=== PATIENT | female | born 1965 | race African-American/Black ===

== ENCOUNTER 2018-01-06 22:26 | Inpatient (IN) | payer SELFPAY ==
[~2018-01-06 22:26] MED LIST: ISOVUE-370 76%-LOCM 1 ML ONE
[2018-01-06] MEDS ORDERED: Nitroglycerin 2% Ointment 1 INCH/1 GM Packet ONE (22:55)
[2018-01-06] MEDS ORDERED: niCARdipine 20MG In NaCl 20 MG/200 ML BAG ONE (22:55)
[2018-01-06 22:56] LABS: #Basophils 0.1 thou/uL (0.0-0.2); #Eosinphils 0.1 thou/uL (0.0-0.7); #Lymphocytes 1.4 thou/uL (1.20-3.40); #Monocytes 0.4 thou/uL (0.11-0.59); #Neutrophils 2.6 thou/uL (1.40-6.50); %Basophils 1.1 % (0.0-1.0); %Eosinophils 1.7 % (0.0-10.0); %Lymphocytes 31.2 % (21.0-51.0); %Monocytes 8.3 % (0.0-10.0); %Neutrophils 57.6 % (42.0-75.0); Mean Corpuscular HGB CONC 33.2 g/dL (32.0-36.0); Mean Corpuscular Hemoglobin 29.1 pg (27.0-31.0); Mean Corpuscular Volume 87.6 fl (81.0-99.0); Mean Platelet Volume 7.6 fL (7.4-10.4); Platelet Count 255 thou/uL (130-400); RBC Distribution Width 11.5 % (11.5-14.5); Red Blood Cell (RBC) Count 4.46 mill/uL (4.20-5.40); White Blood Cell (WBC) Count 4.6 thou/uL (4.8-10.8)
[2018-01-06 23:01] LABS: INR-International Normal Ratio 1.1; PTT 27.5 SEC (22.9-36.1)
--- NOTE | 2018-01-06 23:03 | RAD ---
PORTABLE CHEST: History: Chest pain FINDINGS: Lung glaser are clear. Heart and mediastinum unremarkable. IMPRESSION: No acute process. POS: [facility]
[2018-01-06 23:17] LABS: ALT (SGPT) 9 U/L (8-55); AST (SGOT) 18 U/L (5-34); Albumin 3.9 g/dL (3.5-5.0); Alkaline Phosphatase 90 U/L (40-150); Anion Gap 9 mmol/L (10-20); BUN (Urea Nitrogen) 11 mg/dL (9.8-20.1); Bilirubin, Total 0.4 mg/dL (0.2-1.2); CK (CPK) 170 U/L (29-168); Calc. Creatinine Clearance 0 mL/min (70-130); Calcium 9.6 mg/dL (7.8-10.44); Carbon Dioxide 30 mmol/L (22-29); Chloride 103 mmol/L (98-107); Estimated GFR-MDRD 75; Globulin 4.9 g/dL (2.4-3.5); Glucose 102 mg/dL (70-105); Lipase 27 U/L (8-78); Potassium 3.4 mmol/L (3.5-5.1); Protein, Total 8.8 g/dL (6.0-8.3); Sodium 139 mmol/L (136-145)
[2018-01-06 23:21] LABS: CKMB 2.3 ng/mL (0-6.6); Troponin I 0.029 ng/mL (< 0.028)
--- NOTE | 2018-01-06 23:29 | CT ---
CT AORTOGRAM CHEST AND ABDOMEN WITH CONTRAST: Technique: Multiple axial tomograms were obtained through the chest and abdomen in the arterial phase per aortic protocol. Multiplanar reconstruction and 3D post processing. History: Hypertension, chest pain, shortness of breath. Rule out aortic aneurysm or dissection. FINDINGS: There is no evidence of aneurysmal dilatation. No evidence of thoracic or abdominal aortic dissection . Aortic branches are unremarkable. There is no significant atherosclerotic change seen in the abdomi nal or thoracic aorta. Lung bases appear clear. Liver, spleen, and pancreas are unremarkable. Adrenal glands and kidneys are unremarkable. There are bilateral renal cysts. Bowel loops unremarkable. IMPRESSION: No evidence of aortic aneurysm or dissection. POS: [facility]
[2018-01-06] MEDS ORDERED: Clopidogrel Bisulfate 75 MG TAB ONE ×2 (23:51)
[2018-01-07 00:32] LABS: Acetaminophen Less than 6.0 mcg/mL (10.0-30.0); Alcohol Less than 10 mg/dL (Less than 10); Salicylate Less than 8.0 mg/dL (15.0-30.0)
[2018-01-07] MEDS ORDERED: Metoprolol Tartrate 25 MG TAB PO SCH (00:45)
[2018-01-07] MEDS ORDERED: NIFEdipine XL 60 MG TAB PO SCH (00:45)
[2018-01-07] MEDS ORDERED: hydrALAZINE 25 MG TAB PO PRN (00:54)
[2018-01-07] MEDS ORDERED: Senokot 8.6 MG TAB PO PRN (00:54)
[2018-01-07] MEDS ORDERED: Guaifenesin DM 100-10/5 ML UDCUP PO PRN (00:54)
[2018-01-07] MEDS ORDERED: cloNIDine 0.1 MG TAB PO PRN (00:54)
[2018-01-07] MEDS ORDERED: Acetaminophen 325 MG TAB PO PRN (00:54)
[2018-01-07 01:00] LABS: Bilirubin Negative (Negative); Blood, Urine Negative (Negative); Clarity CLEAR (Clear); Glucose, Urine (Dipstick) Negative (Negative); Leukocyte Negative (Negative); Nitrite Negative (Negative); Protein, Urine (Dipstick) Negative (Neg-Trace); Specific Gravity, Urine 1.016 (1.002-1.036); Urobilinogen 0.2 mg/dL (0.2-1.0); pH, Urine 7.5 (5.0-9.0)
[2018-01-07] MEDS ORDERED: Metoprolol Tartrate 25 MG TAB ONE (01:07)
[2018-01-07 01:14] LABS: Amphetamine Not Detected (NotDetected); Barbiturates Screen Not Detected (NotDetected); Benzodiazepine Screen Not Detected (NotDetected); Cocaine Metabolite Screen Not Detected (NotDetected); Medtox Control Line Valid? VALID (VALID); Medtox Reader # READER 4; Methadone Not Detected (NotDetected); Methamphetamine Not Detected (NotDetected); Opiate Screen Not Detected (NotDetected); Oxycodone Screen Not Detected (NotDetected); Phencyclidine (PCP) Not Detected (NotDetected); THC/Cannabinoid Screen Not Detected (NotDetected); Tricyclic Screen Not Detected (NotDetected)
[2018-01-07] MEDS: Nitroglycerin 2% Ointment 1 INCH/1 GM Packet TOP SCH ×4 (02:09→23:27)
[2018-01-07 02:26] LABS: Troponin I 0.028 ng/mL (< 0.028)
--- NOTE | 2018-01-07 02:35 | HP ---
REASON FOR ADMISSION: Hypertensive emergency, demand ischemia. HISTORY OF PRESENT ILLNESS: The patient gives history of chest tightness, which started around 6:30 p.m. yesterday. 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 Her chest tightness was not resolving and got worse with associated shortness of breath as well. Patient finally was sent by EMS to the emergency room for further evaluation. On arrival, her blood pressure was 240/150 here in the ER. She was placed on nitro paste and Cardene drip was started. Currently, her chest tightness is easing out. No complaints of cough or expectoration. No complaints of fever. She has not had any prior cardiac workup including stress test. PAST MEDICAL/SURGICAL HISTORY: Hypertension from last 20 years and has not been taking any medications as she cannot afford, x2. CURRENT MEDICATIONS: None as patient cannot afford her medications. ALLERGIES: ASPIRIN which causes her to break out. PERSONAL HISTORY: Does not abuse alcohol or drugs. No history of smoking. FAMILY HISTORY: Both parents of old age. Mother at the age of 89. Father was 90-year-old. CODE STATUS: FULL. Power of personal injury attorney is her boyfriend Mr. Lui Jasmine. REVIEW OF SYSTEMS: The following complete review of systems was negative, unless otherwise mentioned in the HPI or below: Constitutional: Weight loss or gain, ability to conduct usual activities. Skin: Rash, itching. Eyes: Double vision, pain. ENT/Mouth: Nose bleeding, neck stiffness, pain, tenderness. Cardiovascular: Palpitations, dyspnea on exertion, orthopnea. Respiratory: Shortness of breath, wheezing, cough, hemoptysis, fever or night sweats. Gastrointestinal: Poor appetite, abdominal pain, heartburn, nausea, vomiting, constipation, or diarrhea. Genitourinary: Urgency, frequency, dysuria, nocturia. Musculoskeletal: Pain, swelling. Neurologic/Psychiatric: Anxiety, depression. Allergy/Immunologic: Skin rash, bleeding tendency. PHYSICAL EXAMINATION: GENERAL: Patient is a 52-year-old female who is currently not in any acute distress. VITAL SIGNS: On arrival, blood pressure was 241/158, currently 146/96 on Cardene drip, pulse 90 per minute, respiratory rate 18 per minute, temperature 98.4 degrees Fahrenheit, saturating 100% on room air. NECK: Supple, no elevated JVD. HEENT: Extraocular muscles intact. Pupils are reacting to light. Oral cavity mucous membranes are moist. No exudates or congestion. CARDIOVASCULAR: S1, S2 heard. Regular rhythm. RESPIRATORY: Air entry 2+ bilateral. No rales or rhonchi. ABDOMEN: Soft, bowel sounds heard. No tenderness, rigidity, or guarding. EXTREMITIES: No peripheral edema or calf tenderness. VASCULAR SYSTEM: Peripheral pulses 2+ bilateral, no ischemic ulcerations or gangrene. CENTRAL NERVOUS SYSTEM: No gross focal deficits seen. Patient is alert, awake , oriented well. PSYCHIATRIC: Patient's mood is euthymic. No hallucinations or delusions. LABORATORY AND X-RAY FINDINGS: Chest x-ray done shows no acute cardiopulmonary process. CT dissection protocol done shows no evidence of aneurysm or dissection. Urine drug screen is negative. UA is negative for any proteins, troponin I 0.02. CK-MB 2.3. BNP is 132, albumin is 3.9. Lipase is 27. TSH 0.93, BUN 11, creatinine 0.9. Serum bicarbonate 30, potassium 3.4. White count of 4.6, H&H 13 and 39, platelet count 255 with 57% neutrophils. EKG done shows normal sinus rhythm at 82 beats per minute. There is nonspecific ST-T wave changes. CLINICAL IMPRESSION AND PLAN: The patient will be admitted to IMCU for hypertensive emergency with demand ischemia. The patient is noncompliant with medications due to financial reasons. She will be given a dose of Procardia-XL 60 mg and Lopressor 25 mg 1 dose now and will try to wean and taper off her Cardene drip. She is currently on Cardene drip. Nitro paste 1/2 inch q.8 hourly, and we will start her on Lopressor 50 mg twice daily from tomorrow and Norvasc 10 mg daily, along with hydrochlorothiazide 25 mg daily. The patient will eventually need a stress test in view of nonspecific EKG changes seen. Once her hypertension is controlled, patient will require a stress test prior to being discharged. We will obtain lipid profile as well. Echo with 2D Doppler for LV function as well. We will continue to closely monitor her on telemetry/IMCU. She can be transferred to telemetry once cardene is tapered and discontinued. MELVIND
[2018-01-07 04:49] LABS: #Eosinphils 0.1 thou/uL (0.0-0.7); #Lymphocytes 1.1 thou/uL (1.20-3.40); #Monocytes 0.4 thou/uL (0.11-0.59); #Neutrophils 3.4 thou/uL (1.40-6.50); %Basophils 0.1 % (0.0-1.0); %Eosinophils 1.9 % (0.0-10.0); %Lymphocytes 22.1 % (21.0-51.0); %Monocytes 8.2 % (0.0-10.0); %Neutrophils 67.7 % (42.0-75.0); Hemoglobin 12.3 g/dL (12.0-16.0); Mean Corpuscular Hemoglobin 29.4 pg (27.0-31.0); Mean Corpuscular Volume 86.6 fl (81.0-99.0); Mean Platelet Volume 7.2 fL (7.4-10.4); Platelet Count 206 thou/uL (130-400); RBC Distribution Width 11.5 % (11.5-14.5); Red Blood Cell (RBC) Count 4.19 mill/uL (4.20-5.40); White Blood Cell (WBC) Count 5.1 thou/uL (4.8-10.8)
[2018-01-07 05:10] LABS: Anion Gap 10 mmol/L (10-20); BUN (Urea Nitrogen) 10 mg/dL (9.8-20.1); Calc. Creatinine Clearance 0 mL/min (70-130); Calcium 9.4 mg/dL (7.8-10.44); Carbon Dioxide 27 mmol/L (22-29); Cardiac Risk 4.1 (Less than 4.5); Chloride 105 mmol/L (98-107); Cholesterol 163 mg/dl (< 200 Desired); Estimated GFR-MDRD Greater than 90; Glucose 100 mg/dL (70-105); HDL Cholesterol 40 mg/dL (>60 Neg Risk); LDL Cholesterol, Calculated 113 mg/dL; Potassium 3.1 mmol/L (3.5-5.1); Sodium 139 mmol/L (136-145); Triglycerides 48 mg/dL (Less than 150)
[2018-01-07 05:15] LABS: Troponin I 0.039 ng/mL (< 0.028)
[2018-01-07] MEDS ORDERED: Nitroglycerin 2% Ointment 1 INCH/1 GM Packet ONE ×2 (06:01→15:14)
[2018-01-07] MEDS ORDERED: Potassium Chloride 20 MEQ TAB ONE (06:54)
[2018-01-07] MEDS: Potassium Chloride 20 MEQ TAB PO SCH ×4 (06:56→23:27)
[2018-01-07] MEDS ORDERED: Amlodipine 5 MG TAB ONE (08:36)
[2018-01-07] MEDS ORDERED: Enoxaparin Sodium 40 MG/0.4 ML SYRINGE ONE (08:36)
[2018-01-07] MEDS ORDERED: Clopidogrel Bisulfate 75 MG TAB ONE (08:36)
[2018-01-07] MEDS ORDERED: Metoprolol Tartrate 50 MG TAB ONE (08:36)
[2018-01-07] MEDS ORDERED: Famotidine 20 MG TAB ONE (08:36)
[2018-01-07] MEDS: Amlodipine 10 MG TAB PO SCH (09:15)
[2018-01-07] MEDS: Metoprolol Tartrate 50 MG TAB PO SCH ×2 (09:16→19:58)
[2018-01-07] MEDS: Hydrochlorothiazide 25 MG TAB PO SCH (09:16)
[2018-01-07] MEDS: Famotidine 20 MG TAB PO SCH ×2 (09:16→19:58)
[2018-01-07] MEDS: Enoxaparin Sodium 40 MG/0.4 ML SYRINGE SC SCH (09:16)
[2018-01-07] MEDS: Clopidogrel Bisulfate 75 MG TAB PO SCH (09:16)
[2018-01-07 16:47] VITALS: BMI 33.3
--- NOTE | 2018-01-07 18:43 | PDOC.EVN ---
Event Note - Event Note Event Note: Chart reviewed, pt seen. Will follow.
[2018-01-08] MEDS: Potassium Chloride 20 MEQ TAB PO SCH (05:30)
[2018-01-08] MEDS: Nitroglycerin 2% Ointment 1 INCH/1 GM Packet TOP SCH ×3 (05:30→21:38)
[2018-01-08] MEDS: Clopidogrel Bisulfate 75 MG TAB PO SCH (09:03)
[2018-01-08] MEDS: Metoprolol Tartrate 50 MG TAB PO SCH (09:03)
[2018-01-08] MEDS: Amlodipine 10 MG TAB PO SCH (09:03)
[2018-01-08] MEDS: Famotidine 20 MG TAB PO SCH ×2 (09:03→20:31)
[2018-01-08] MEDS: Enoxaparin Sodium 40 MG/0.4 ML SYRINGE SC SCH (09:03)
[2018-01-08] MEDS: Hydrochlorothiazide 25 MG TAB PO SCH (09:03)
[2018-01-08] MEDS: Sodium Chloride 0.9% 1,000 ML IV SCH (13:32)
[2018-01-08] MEDS ORDERED: ADENOSINE 60 MG/20 ML VIAL ONE (15:48)
--- NOTE | 2018-01-08 16:46 | NM ---
NUCLEAR MEDICINE CARDIAC STRESS WITH EF AND WALL MOTION 01/08/18 HISTORY: Chest pain. COMPARISON: None. TECHNIQUE: Stress only imaging was performed. Patient administered 33 millicuries of technetium 99m Sestamibi. FINDINGS: Homogeneous distribution of radiotracer in the left ventricle. No defect. End diastolic volume is 126 mL. End systolic volume is 58 mL. CARDIAC GATING: Normal motion and thickening. EF of 54%. IMPRESSION: 1. No evidence of defect. 2. EF of 54%. POS: [facility]
[2018-01-08] MEDS ORDERED: Potassium Chloride 20 MEQ TAB PO SCH (17:30)
--- NOTE | 2018-01-08 18:01 | PDOC.PN ---
- Subjective Encounter Start Date: 01/08/18 Encounter Start Time: 10:00 Pt seen for followup re: chest pain. No cough, chest pain, dysuria, fevers or chills. - Objective Resuscitation Status: Resuscitation Status FULL:Full Resuscitation MAR Reviewed: Yes Vital Signs & Weight: Vital Signs (12 hours) Temp Pulse Resp BP Pulse Ox 01/08/18 08:01 99.9 F H 80 16 132/79 97 01/08/18 08:00 99.9 F H 80 16 Weight Weight 176 lb 9.444 oz I&O: 01/07/18 01/08/18 01/09/18 06:59 06:59 06:59 Intake Total 240 Balance 240 Result Diagrams: 01/07/18 04:40 01/07/18 04:40 EKG Reviewed by me: Yes (Tele: NSR) Phys Exam - Physical Examination Obese HEENT: moist MMs Neck: supple Respiratory: clear to auscultation bilateral Cardiovascular: RRR Gastrointestinal: soft Neurological: moves all 4 limbs Psychiatric: normal affect Skin: no rash Dx/Plan (1) Chest pain Code(s): R07.9 - CHEST PAIN, UNSPECIFIED Status: Acute (2) Hypertension Code(s): I10 - ESSENTIAL (PRIMARY) HYPERTENSION Status: Chronic (3) Noncompliance with medication regimen Code(s): Z91.14 - PATIENT'S OTHER NONCOMPLIANCE WITH MEDICATION REGIMEN Status : Chronic - Plan * . Check stress test. Needs support re; medications. BP improved. Low-grade fevers today, observe overnight. Review of Systems - Review of Systems Respiratory: negative: Cough, Dry, Shortness of Breath, Hemoptysis, SOB with Excertion, Pleuritic Pain, Sputum, Wheezing Cardiovascular: negative: chest pain, palpitations, orthopnea, paroxysmal nocturnal dyspnea, edema, light headedness Skin: negative: Rash, Lesions, Fritz, Bruising - Medications/Allergies Allergies/Adverse Reactions: Allergies Allergy/AdvReac Type Severity Reaction Status Date / Time No Known Drug Allergies Allergy Verified 01/07/18 06:53 Medications: Current Medications Acetaminophen (Tylenol) 650 mg PO Q4H PRN PRN Reason: Headache/Fever or Pain Amlodipine Besylate (Norvasc) 10 mg PO DAILY [facility] Last Admin: 01/08/18 09:03 Dose: 10 mg Clonidine (Catapres) 0.1 mg PO Q4H PRN PRN Reason: for sbp >180 Clopidogrel Bisulfate (Plavix) 75 mg PO DAILY [facility] Last Admin: 01/08/18 09:03 Dose: 75 mg Enoxaparin Sodium (Lovenox) 40 mg SC 0900 [facility] Last Admin: 01/08/18 09:03 Dose: 40 mg Famotidine (Pepcid) 20 mg PO BID [facility] Last Admin: 01/08/18 09:03 Dose: 20 mg Guaifenesin/Dextromethorphan (Robitussin Dm) 15 ml PO Q4H PRN PRN Reason: Cough Hydralazine HCl (Apresoline) 25 mg PO Q6H PRN PRN Reason: for sbp >180 Hydrochlorothiazide (Hydrochlorothiazide) 25 mg PO DAILY [facility] Last Admin: 01/08/18 09:03 Dose: 25 mg Sodium Chloride (Normal Saline 0.9%) 1,000 mls @ 50 mls/hr IV .Q20H [facility] Last Admin: 01/08/18 13:32 Dose: 1,000 mls Metoprolol Tartrate (Lopressor) 50 mg PO BID [facility] Last Admin: 01/08/18 09:03 Dose: 50 mg Nitroglycerin (Nitro-Bid 2% Ointment) 0.5 inch TOP Q8HR [facility] Last Admin: 01/08/18 05:30 Dose: 0.5 inch Potassium Chloride (K-Dur) 40 meq PO NOW [facility] Stop: 01/08/18 19:30 Senna (Senokot) 2 tab PO HSPRN PRN PRN Reason: Constipation Sodium Chloride (Flush - Normal Saline) 10 ml IVF Q12HR [facility] Sodium Chloride (Flush - Normal Saline) 10 ml IVF PRN PRN PRN Reason: Saline Flush
[2018-01-08] MEDS: Metoprolol Tartrate 100 MG TAB PO SCH (20:31)
[2018-01-09] MEDS: Nitroglycerin 2% Ointment 1 INCH/1 GM Packet TOP SCH ×2 (05:27→14:00)
[2018-01-09 08:37] VITALS: BP 136/80; TEMP 99
[2018-01-09] MEDS: Clopidogrel Bisulfate 75 MG TAB PO SCH (08:38)
[2018-01-09] MEDS: Enoxaparin Sodium 40 MG/0.4 ML SYRINGE SC SCH ×2 (08:38→08:46)
[2018-01-09] MEDS: Amlodipine 10 MG TAB PO SCH (08:38)
[2018-01-09] MEDS: Metoprolol Tartrate 100 MG TAB PO SCH (08:39)
[2018-01-09] MEDS: Famotidine 20 MG TAB PO SCH (08:39)
[2018-01-09] MEDS: Hydrochlorothiazide 25 MG TAB PO SCH (08:39)
[2018-01-09] MEDS: Sodium Chloride 0.9% 1,000 ML IV SCH (08:44)
[2018-01-09 11:27] LABS: #Eosinphils 0.1 thou/uL (0.0-0.7); #Lymphocytes 1.2 thou/uL (1.20-3.40); #Monocytes 0.6 thou/uL (0.11-0.59); #Neutrophils 5.1 thou/uL (1.40-6.50); %Basophils 0.2 % (0.0-1.0); %Eosinophils 1.8 % (0.0-10.0); %Lymphocytes 17.1 % (21.0-51.0); %Monocytes 7.9 % (0.0-10.0); Hemoglobin 12.6 g/dL (12.0-16.0); Mean Corpuscular HGB CONC 32.9 g/dL (32.0-36.0); Mean Corpuscular Hemoglobin 29.2 pg (27.0-31.0); Mean Corpuscular Volume 88.6 fl (81.0-99.0); Mean Platelet Volume 7.8 fL (7.4-10.4); Platelet Count 228 thou/uL (130-400); RBC Distribution Width 11.5 % (11.5-14.5); Red Blood Cell (RBC) Count 4.33 mill/uL (4.20-5.40)
[2018-01-09 11:37] LABS: ALT (SGPT) 7 U/L (8-55); AST (SGOT) 14 U/L (5-34); Albumin 3.7 g/dL (3.5-5.0); Alkaline Phosphatase 84 U/L (40-150); Anion Gap 13 mmol/L (10-20); BUN (Urea Nitrogen) 12 mg/dL (9.8-20.1); Bilirubin, Total 0.5 mg/dL (0.2-1.2); Calc. Creatinine Clearance 105 mL/min (70-130); Calcium 9.8 mg/dL (7.8-10.44); Carbon Dioxide 22 mmol/L (22-29); Chloride 104 mmol/L (98-107); Estimated GFR-MDRD Greater than 90; Globulin 4.9 g/dL (2.4-3.5); Glucose 103 mg/dL (70-105); Potassium 3.7 mmol/L (3.5-5.1); Protein, Total 8.6 g/dL (6.0-8.3); Sodium 135 mmol/L (136-145)
--- NOTE | 2018-01-09 12:28 | DIS ---
DATE OF ADMISSION: 01/07/2018 DATE OF DISCHARGE: 01/09/2018 PRIMARY CARE PHYSICIAN: Dr. Angy London. DISCHARGE DIAGNOSES: 1. Hypertensive emergency. 2. Demand ischemia. CONDITION OF PATIENT ON THE DAY OF DISCHARGE: Stable. I assessed Ms. Flanagan on the day of discharge . She denies any chest pain or shortness of breath. She denies any fevers. She had a T-max of 100. 4 at 0312 hours today. Otherwise, vital signs are stable. Blood pressure at this time is 136/80. S 1 and S2 are heard, regular. Lungs are clear to auscultation bilaterally. DISCHARGE MEDICATIONS: Amlodipine 10 mg daily, Lopressor 100 mg 2 times a day. HOSPITAL COURSE: Ms. Flanagan is a pleasant 52-year-old lady who was admitted to [facility] on 01/07/2018 for demand ischemia secondary to hypertensive emergency. She improved wit h antihypertensives. A 2D echocardiogram on 01/07/2018 showed left ventricular ejection fraction of 55%-60%, mildly dilated left atrium and severe concentric left ventricular hypertrophy. She had impa ired relaxation compatible with diastolic dysfunction and mild mitral regurgitation. She went on to have a nuclear stress test on 01/08/2018, which did not show any evidence of defect, w ith ejection fraction of 54%. She had low grade fevers during this hospitalization. Urinalysis was unremarkable. She also had a n egative influenza screen. Chest x-ray did not show any infiltrates. She was not started on antibiot ics. At the time of this dictation, blood cultures are pending. She is advised to follow up with he r primary care physician for blood culture reports. She was noncompliant with her medications in the past. She has been encouraged to be compliant with her medications. Many thanks for allowing me to participate in your patient's care. Please feel free to contact me wi th any questions or concerns. On the day of discharge, she has white count 7000, hemoglobin 12.6, platelet count 228,000. Sodium 1 35, potassium 3.7. Blood urea nitrogen 12, creatinine 0.78. She is advised to check her blood pressure and heart rate 3 times a day and show the readings to her primary care provider. She was advised to see her primary care provider in 3-5 days. DISCHARGE DESTINATION: Home. TOTAL AMOUNT OF TIME SPENT COORDINATING THIS DISCHARGE: 38 minutes.
--- NOTE | 2018-02-10 14:07 | STRESS ---
Acquisition Time: 2018-01-08 14:22:20 Total Exercise Time: 00:04:00 Test Indications: CHEST PAIN Medications: Protocol: ADENOSINE Max HR: 089 BPM 53% of Pred: 167 BPM Max BP: 144/086 mmHG Max Work Load: 1.0 METS RESTING ECG: NORMAL SINUS RHYTHM AT 68 BPM WITH LEFT VENTRICULAR HYPERTROPHY SYMPTOMS: NONE APPROPRIATE BLOOD PRESSURE RESPONSE FOR ADENOSINE ECTOPY: NONE ECG RESPONSE: NO SIGNIFICANT CHANGES INTERPRETATION: NEGATIVE ECG/AWAIT NUCLEAR IMAGES FOR DEFINITIVE DIAGNOSIS Confirmed by DR. Ana BARNES ([id number]), editorial manager ISAIAH SILVA ([id number]) on 02/10/2018 2:07:18 PM Referred By: Erlinda DEY Confirmed By:DR. Ana BARNES
== END 2018-01-09 14:39 | disposition home or self-care (01) | DRG 305 ==
LOC: ERS 22:26 → ERHOLD 23:40 → 2NO 01-07 16:38
PROVIDERS: ADMIT Internal Medicine; ATTEND Internal Medicine
DX: I16.1 Hypertensive emergency (principal); Z91.120 Patient's intentional underdosing of medication regimen due to financial hardship; I24.8 Other forms of acute ischemic heart disease; I11.9 Hypertensive heart disease without heart failure; I34.0 Nonrheumatic mitral (valve) insufficiency
CPT/HCPCS: 36415; 71045; 71275; 78452; 80048; 80053; 80061; 80306; 80307; 81003; 82553; 83690; 83880; 84443; 84484; 85025; 85610; 85730; 87040; 87804; 93005; 93017; 93306; 96365; 96366; A4216; A9500; J0153; J1650

== ENCOUNTER 2019-06-29 18:10 | Observation (INO) | payer SELFPAY ==
[2019-06-29 18:41] LABS: #Monocytes 0.3 thou/uL (0.11-0.59); #Neutrophils 2.3 thou/uL (1.40-6.50); %Basophils 0.4 % (0.0-1.0); %Eosinophils 0.8 % (0.0-10.0); %Lymphocytes 28.2 % (21.0-51.0); %Monocytes 7.2 % (0.0-10.0); %Neutrophils 63.4 % (42.0-75.0); Hemoglobin 12.7 g/dL (12.0-16.0); Mean Corpuscular HGB CONC 33.6 g/dL (32.0-36.0); Mean Corpuscular Hemoglobin 29.6 pg (27.0-31.0); Mean Corpuscular Volume 87.9 fL (78.0-98.0); Mean Platelet Volume 7.1 fL (7.4-10.4); Platelet Count 197 thou/uL (130-400); RBC Distribution Width 12.2 % (11.5-14.5); White Blood Cell (WBC) Count 3.6 thou/uL (4.8-10.8)
[2019-06-29] MEDS ORDERED: Nitroglycerin 0.4 MG TAB 1 EACH ONE (18:48)
[2019-06-29] MEDS ORDERED: Metoprolol Tartrate 5 MG/5 ML VIAL ONE ×3 (18:49→20:45)
[2019-06-29] MEDS ORDERED: Nitroglycerin 2% Ointment 1 INCH/1 GM Packet ONE (18:49)
[2019-06-29 19:07] LABS: CKMB 1.6 ng/mL (0-6.6)
[2019-06-29 19:11] LABS: ALT (SGPT) 9 U/L (8-55); AST (SGOT) 19 U/L (5-34); Albumin 3.8 g/dL (3.5-5.0); Alkaline Phosphatase 89 U/L (40-150); Anion Gap 12 mmol/L (10-20); BUN (Urea Nitrogen) 9 mg/dL (9.8-20.1); Bilirubin, Total 0.7 mg/dL (0.2-1.2); CK (CPK) 116 U/L (29-168); Calc. Creatinine Clearance 0 mL/min (70-130); Calcium 9.7 mg/dL (7.8-10.44); Carbon Dioxide 27 mmol/L (22-29); Chloride 101 mmol/L (98-107); Estimated GFR-MDRD 84; Globulin 4.6 g/dL (2.4-3.5); Glucose 173 mg/dL (70-105); Lipase 19 U/L (8-78); Potassium 3.1 mmol/L (3.5-5.1); Protein, Total 8.4 g/dL (6.0-8.3); Sodium 137 mmol/L (136-145)
[2019-06-29] MEDS ORDERED: Clopidogrel Bisulfate 75 MG TAB ONE (19:11)
--- NOTE | 2019-06-29 19:24 | RAD ---
PORTABLE AP CHEST X-RAY: 06/29/2019 HISTORY: Chest pain that started one day ago. COMPARISON: 01/06/2018 FINDINGS: The cardiac silhouette is magnified by projection but stable in size. The pulmonary vasculature is w ithin normal limits. The lung remain clear. There is a defect in the superolateral aspect of the le ft humeral head, which may represent Hill-Sachs deformity. If this is unchanged compared to a CTA ch est from 01/06/2018. Mild degenerative change is seen in the spine. IMPRESSION: No acute cardiopulmonary process. POS: [facility]
--- NOTE | 2019-06-29 21:22 | CT ---
CT ANGIOGRAM CHEST AND ABDOMEN WITH AORTIC DISSECTION PROTOCOL: 06/29/2019 HISTORY: Chest pain. COMPARISON: 01/06/2018 TECHNIQUE: Axial CT imaging at 2.5 mm intervals, from the thoracic inlet through the aortic bifurcation, with IV contrast, using CT angiogram protocol. Coronal and sagittal 3D reformatted imaging obtained. FINDINGS: No axillary, hilar, or mediastinal lymphadenopathy. No pleural, pericardial, or mediastinal fluid. There is a nodule within the left lobe of the thyroid gland, measuring approximately 1.2 cm. Follow- up dedicated thyroid ultrasound advised. There is no evidence for aneurysm or dissection involving the thoracic aorta. There is no pneumothorax noted on either side. No acute pulmonary parenchymal finding noted on either side. There is a nodule within the lateral aspect of the right lower lobe, measuring 7 mm in AP dimension, unchanged when compared to the prior study. The osseous structures of the chest demonstrate no acute findings. The pelvis is not imaged on this exam. The liver, gallbladder, spleen, pancreas, adrenal glands, and kidneys demonstrate no acute findings. There is a cyst emanating from the left renal lower pole, me asuring 1.8 cm. Limited assessment of the bowel is unremarkable. There is no evidence for aneurysm or dissection of the abdominal aorta. The celiac axis, superior mesenteric artery, bilateral renal arteries, and infe rior mesenteric artery are patent and unremarkable. No abdominal lymphadenopathy. Bilateral L5 pars defects are noted with mild anterolisthesis of L5 on S1. No worrisome lytic or jay stic bone lesion within the abdomen. IMPRESSION: 1. No evidence for aneurysm or dissection of the thoracic or abdominal aorta. 2. Incidental findings as described above. POS: [facility]
[2019-06-29 22:04] LABS: Troponin I Less than 0.010 ng/mL (< 0.028)
[2019-06-29] MEDS ORDERED: Nitroglycerin 2% Ointment 1 INCH/1 GM Packet TOP SCH (23:59)
[2019-06-30 00:12] VITALS: BMI 27.4
[2019-06-30 01:30] LABS: Troponin I 0.011 ng/mL (< 0.028)
[2019-06-30] MEDS ORDERED: Ondansetron PF 4 MG/2 ML Vial IVP PRN (03:05)
[2019-06-30] MEDS ORDERED: Acetaminophen 500 MG TAB PO PRN (03:05)
[2019-06-30] MEDS ORDERED: hydrALAZINE 20 MG/ML VIAL SLOW IVP PRN (03:05)
[2019-06-30] MEDS ORDERED: Ondansetron ODT 4 MG TAB PO PRN (03:05)
[2019-06-30] MEDS ORDERED: Metoprolol Tartrate 50 MG TAB PO SCH ×2 (04:00→21:00)
--- NOTE | 2019-06-30 04:14 | HP ---
PRIMARY CARE PROVIDER: Angy London DO COMPLAINT: Chest pain. HISTORY OF PRESENT ILLNESS: This is a 54-year-old female, who presents to [facility] Emergency Department complaining of central chest pressure which began approximately 1 week prior to this evaluation with some radiation to the back and side of her neck with associated elevated blood pressure. The patient with a long-standing history of hypertension, noncompliant with chronic medication and continued use of tobacco. The patient initially felt dull chest pressure rating at 9/10, lasting over the last week. The patient states she was discharged in January 2018 with similar presentation in hypertensive urgency and placed on metoprolol and amlodipine. The patient states she took the medication for a time, but after the prescription ran out, she did not refill it. In the emergency room, the patient underwent general evaluation with initial blood pressure measured 223/134 with a pulse of 101. The patient received metoprolol intravenously in addition to sublingual nitroglycerin and transdermal Nitro-Bid. The patient was also given Plavix 300 mg x1 dose. PAST MEDICAL HISTORY: 1. Hypertension, uncontrolled. 2. Noncompliance. 3. Tobacco abuse. PAST SURGICAL HISTORY: Status post section x2. CURRENT MEDICATIONS: Reviewed and negative. ALLERGIES: ASPIRIN, UNKNOWN REACTION. FAMILY HISTORY: Positive for hypertension. SOCIAL HISTORY: The patient resides in [place], [place]. Unemployed currently. Accompanied by her children and grandchildren in the hospital. Smokes up to a pack of cigarettes daily. Denies alcohol or illicit drug use. REVIEW OF SYSTEMS: CONSTITUTIONAL: Negative for weight loss or gain, ability to conduct usual activities. SKIN: Negative for rash, itching. EYES: Negative for double vision, pain. ENT/MOUTH: Negative for nose bleeding, neck stiffness, pain, tenderness. CARDIOVASCULAR: Negative for palpitations, dyspnea on exertion, orthopnea. RESPIRATORY: Negative for shortness of breath, wheezing, cough, hemoptysis, fever or night sweats. GASTROINTESTINAL: Negative for poor appetite, abdominal pain, heartburn, nausea, vomiting, constipation, or diarrhea. GENITOURINARY: Negative for urgency, frequency, dysuria, nocturia. MUSCULOSKELETAL: Negative for pain, swelling. NEUROLOGIC/PSYCHIATRIC: Negative for anxiety, depression. ALLERGY/IMMUNOLOGIC: Negative for skin rash, bleeding tendency. Otherwise, negative except as stated per HPI. PHYSICAL EXAMINATION: VITAL SIGNS: On admission, blood pressure 223/134, pulse 101, respiratory rate 17, temperature 98.9 degrees Fahrenheit, O2 saturation 98% on room air. GENERAL APPEARANCE: This is a 54-year-old female, alert and oriented x3, pleasant, and in no acute distress. HEENT: Pupils are equal, round, reactive to light and accommodation. Extraocular muscles are intact. No scleral icterus. No conjunctival injection. Nares are patent. OP is clear. NECK: Supple. No cervical adenopathy. No thyromegaly. No carotid bruits. No JVD appreciated. Cervical spine with full active and passive range of motion. No meningeal signs noted. CHEST: Diminished breath sounds in the bases bilaterally. CARDIOVASCULAR: S1 and S2 with a 2-3/6 systolic ejection murmur loudest in the left upper sternal border. ABDOMEN: Flat, soft, nontender, nondistended. Bowel sounds are positive in all 4 quadrants. No palpable mass. No rebound or guarding noted. EXTREMITIES: Warm and dry with fair turgor. No clubbing, cyanosis, or asymmetric edema appreciated. Pulses palpable distally at the dorsalis pedis, posterior tibial, and popliteal arteries bilaterally. Capillary refill less than 2 seconds. NEUROLOGIC: Cranial nerves 2 through 12 are grossly intact. No focal or lateralizing signs appreciated. PERTINENT LABORATORY AND X-RAY FINDINGS: Sodium 137, potassium 3.1, chloride 101, CO2 of 27, BUN 9, creatinine 0.85, estimated GFR 84, glucose 173, calcium 9.7. LFTs within normal limits. Troponin I negative x3. BNP 67. Lipase 19. CBC showed a white blood cell count of 3.6, hemoglobin 12.7, hematocrit 38, platelet count 197 with normal differential. Portable chest x-ray dated 06/29/2019, showed no acute cardiopulmonary process. CT of the chest with dissection protocol dated 06/29/2019, showed no evidence for aneurysm or dissection. EKG dated 06/29/2019, by my interpretation shows sinus mechanism with heart rates in the 80s. Attenuated R-waves noted in the precordial leads. Voltage criteria consistent with left ventricular hypertrophy. Normal axis. T-wave inversion noted in the lead 1 and aVL. ASSESSMENT AND PLAN: 1. Hypertensive urgency. The patient will be observed on the telemetry unit. Initially managed with IV metoprolol and transdermal nitroglycerin. We will initiate metoprolol 50 mg p.o. b.i.d. with additional HCTZ 25 mg daily. P.r.n. hydralazine and clonidine. Serial blood pressure monitoring for optimal management. Education regarding the need for compliance with outpatient blood pressure regimen. 2. Tobacco abuse. We will offer smoking cessation resources prior to discharge. 3. Hypokalemia. Mild. Potassium chloride supplementation and repeat potassium level. 4. Noncompliance. Consider Case Management consultation for outpatient medication assistance. 5. Prophylaxis. SCDs while in bed. Pepcid 20 mg p.o. b.i.d. 6. Code status, full. Surrogate medical decision maker is Paulo Jasmine. Job ID: [id number]
[2019-06-30] MEDS: Hydrochlorothiazide 25 MG TAB PO SCH (08:28)
[2019-06-30] MEDS: Famotidine 20 MG TAB PO SCH ×2 (08:28→21:38)
[2019-06-30] MEDS: cloNIDine 0.1 MG TAB PO PRN (08:28)
[2019-06-30] MEDS ORDERED: Aspirin 325 MG TAB PO SCH (09:00)
[2019-06-30] MEDS ORDERED: NIFEdipine XL 30 MG TAB PO SCH (14:00)
[2019-06-30] MEDS ORDERED: Potassium Chloride 20 MEQ TAB PO SCH ×2 (16:30→18:30)
--- NOTE | 2019-06-30 19:05 | PRG ---
DATE OF SERVICE: 06/30/2019 SUBJECTIVE: Ms. Gail Jasmine is a 54-year-old female with past medical history significant for hypertension, tobacco abuse, who presented to the hospital with complaints of chest discomfort. She has been admitted with accelerated hypertension. ACS has been ruled out. She has had no further chest pain since admission, but she has had suboptimal blood pressure readings despite reinstatement of her previous anti-hypertensive. The patient has no nausea or vomiting. No complaints at this time. OBJECTIVE: VITAL SIGNS: Blood pressure 187/107, pulse is 63, O2 sat is 98% on room air, respirations are 16. GENERAL: The patient is a mildly obese female, resting comfortably in bed, in no acute distress HEENT: Head is atraumatic and normocephalic. Mucous membranes are moist. NECK: Trachea is midline. No JVD. CV: S1 and S2. Regular rate and rhythm. No appreciable murmurs, rubs, or gallops. LUNGS: Regular respiratory rate and pattern, overall clear to auscultation bilaterally. ABDOMEN: Positive bowel sounds. Soft, nontender. EXTREMITIES: No edema. SKIN: Warm and dry. NEUROLOGIC: Cranial nerves 2 through 12 were grossly intact. The patient is nonfocal. LABORATORY DATA: Sodium 137, potassium 3.1, BUN is 9, creatinine 0.85. Troponin is negative x3. ASSESSMENT: 1. Chest pain, resolved, acute coronary syndrome ruled out, likely secondary to accelerated hypertension. 2. Resistant hypertension. 3. Tobacco abuse. 4. Hypokalemia. 5. Noncompliance. PLAN: At this time, we will add nifedipine to the patient's beta kendrick and diuretic. We will replete her potassium and recheck in the morning. Expect discharge tomorrow if her blood pressure trends down appropriately. Job ID: [id number] MTDD
[2019-06-30] MEDS: Metoprolol Tartrate 50 MG TAB PO SCH (21:44)
[2019-07-01 05:52] LABS: Anion Gap 9 mmol/L (10-20); BUN (Urea Nitrogen) 13 mg/dL (9.8-20.1); Calc. Creatinine Clearance 97 mL/min (70-130); Calcium 9.5 mg/dL (7.8-10.44); Carbon Dioxide 27 mmol/L (22-29); Chloride 105 mmol/L (98-107); Estimated GFR-MDRD Greater than 90; Glucose 94 mg/dL (70-105); Potassium 3.7 mmol/L (3.5-5.1); Sodium 137 mmol/L (136-145)
[2019-07-01] MEDS: Metoprolol Tartrate 50 MG TAB PO SCH (08:32)
[2019-07-01] MEDS: Famotidine 20 MG TAB PO SCH (08:32)
[2019-07-01] MEDS: Hydrochlorothiazide 25 MG TAB PO SCH (08:32)
[2019-07-01] MEDS ORDERED: NIFEdipine XL 30 MG TAB PO SCH (09:00)
[2019-07-01] MEDS: cloNIDine 0.1 MG TAB PO PRN (11:43)
[2019-07-01 12:36] VITALS: TEMP 98
[2019-07-01 12:52] VITALS: BP 151/81
--- NOTE | 2019-07-01 15:31 | EKG ---
Test Reason : Blood Pressure : / mmHG Vent. Rate : 083 BPM Atrial Rate : 083 BPM P-R Int : 188 ms QRS Dur : 086 ms QT Int : 404 ms P-R-T Axes : 057 017 139 degrees QTc Int : 474 ms Normal sinus rhythm Possible Left atrial enlargement Left ventricular hypertrophy Biatrial enlargement Prolonged QT Abnormal ECG Confirmed by TETO LIZAMA, ELAINE Betancourt ([id number]), newspaper copy editor BESSY BERTRAND ([id number]) on 07/01/2019 3:30:53 PM Referred By: Confirmed By:ELAINE IRENE MD
--- NOTE | 2019-07-01 16:42 | DIS ---
DATE OF ADMISSION: 06/29/2019 DATE OF DISCHARGE: 07/01/2019 CHIEF COMPLAINT ON ADMISSION: Chest pain. DISCHARGE DIAGNOSES: 1. Chest pain, resolved, acute coronary syndrome ruled out, likely secondary to accelerated hypertension. 2. Resistant hypertension, much improved since admission. 3. Tobacco abuse. 4. Hypokalemia, resolved. 5. Noncompliance. BRIEF HOSPITAL COURSE: The patient is a 54-year-old female with past medical history significant for hypertension, tobacco abuse, and noncompliance with medical therapy, who presented to the hospital with complaints of chest discomfort. She did have some radiation of the chest discomfort to the back and to the neck. The patient presented to the Emergency Department for further workup and treatment. On arrival to the Emergency Department, initial blood pressure was 223/134. She underwent CT angiogram of the chest and abdomen with aortic dissection protocol, which revealed no evidence of aneurysm or dissection involving the thoracic or aorta, no pneumothorax. Her troponin negative x3. Lab work was remarkable for a potassium of 3.1, which was repleted. The patient had a similar presentation in January 2018, where she presented with chest pain and had accelerated hypertension. She underwent a stress test in 2018, which showed no reversible ischemia. The patient was reinstated on her beta kendrick, along with hide hydrochlorothiazide. She was also initiated on antihypertensive therapy with nifedipine. The patient's blood pressure did trend down nicely. She had no further chest discomfort. She has no complaints to me today. She notes she has no chest pain, shortness of breath. No nausea or vomiting. She is tolerating a diet well. DISCHARGE DISPOSITION: Home. DISCHARGE CONDITION: Stable. I have counseled the patient extensively on the importance of compliance with medical therapy. I have extensively explained the risks of uncontrolled hypertension including stroke, heart attack, and . Given the new prescriptions have been eren tabor, she was include metoprolol tartrate 50 mg b.i.d., nifedipine 30 mg daily, hydrochlorothiazide 25 mg daily, along with clonidine 0.1 mg p.r.n. systolic blood pressure greater than 170. She will be discharged in good condition today with followup at [facility]. Job ID: [id number]
== END 2019-07-01 14:48 | disposition home or self-care (01) ==
LOC: ERS 18:10 → 2SW 23:51
PROVIDERS: ADMIT Internal Medicine; ATTEND Internal Medicine
DX: R07.89 Other chest pain (principal); I10 Essential (primary) hypertension; I16.0 Hypertensive urgency; F17.210 Nicotine dependence, cigarettes, uncomplicated; E87.6 Hypokalemia; Z91.14 Patient's other noncompliance with medication regimen; Z88.8 Allergy status to other drugs, medicaments and biological substances
CPT/HCPCS: 36415; 71045; 71275; 80048; 80053; 82550; 82553; 83690; 83880; 84484; 85025; 93005; 96374; 96376; G0378; J2405; Q9966

== ENCOUNTER 2020-02-05 08:51 | Outpatient (CLI) | payer BC ==
--- NOTE | 2020-02-05 09:27 | MMO ---
Bilateral MAMMO Bilat Screen [facility]. CLINICAL HISTORY: Patient is 54 years old and is seen for screening. The patient has no family history of breast cancer. The patient has no personal history of cancer. VIEWS: The views performed were: bilateral craniocaudal with tomosynthesis and bilateral mediolateral oblique with tomosynthesis. FILMS COMPARED: The present examination has been compared to prior imaging studies performed on 03/09/2009, and at [facility] on 11/30/2014. This study has been interpreted with the assistance of computer-aided detection. MAMMOGRAM FINDINGS: The breasts are heterogeneously dense, which could obscure a lesion on mammography. Finding 1: There are stable benign appearing calcifications seen in both breasts. Finding 2: There are stable benign appearing densities seen in both breasts. There are no suspicious masses, suspicious calcifications, or new areas of architectural distortion. IMPRESSION: THERE IS NO MAMMOGRAPHIC EVIDENCE OF MALIGNANCY. A ROUTINE FOLLOW-UP MAMMOGRAM IN 1 YEAR IS RECOMMENDED. THE RESULTS OF THIS EXAM WERE SENT TO THE PATIENT. ACR BI-RADS Category 2 - Benign finding MAMMOGRAPHY NOTE: 1. A negative mammogram report should not delay a biopsy if a dominant of clinically suspicious mass is present. 2. Approximately 10% to 15% of breast cancers are not detected by mammography. 3. Adenosis and dense breasts may obscure an underlying neoplasm. Reported by: MIGEL RANDLE MD Electonically Signed: [id number]
== END 2020-02-05 08:52 | disposition home or self-care (01) ==
LOC: BICMAMMO 08:51
PROVIDERS: ATTEND Clinical Nurse Specialist Medical-Surgical
DX: Z12.31 Encounter for screening mammogram for malignant neoplasm of breast (principal)
CPT/HCPCS: 77063; 77067

== ENCOUNTER 2022-07-13 22:00 | Observation (INO) | payer BC ==
[2022-07-14 01:27] VITALS: BMI 29.0
[2022-07-14] MEDS ORDERED: Ondansetron PF 4 MG/2 ML Vial IVP PRN (01:42)
[2022-07-14] MEDS ORDERED: Acetaminophen 325 MG TAB PO PRN (01:42)
[2022-07-14] MEDS ORDERED: cloNIDine 0.1 MG TAB PO SCH (01:45)
[2022-07-14] MEDS ORDERED: Melatonin 3 MG TAB PO PRN (01:50)
[2022-07-14] MEDS ORDERED: Nitroglycerin 0.4 MG TAB (25 Tab Bottle) SL PRN (01:50)
[2022-07-14] MEDS ORDERED: Pantoprazole 40 MG VIAL IVP SCH (02:00)
[2022-07-14] MEDS ORDERED: Nitroglycerin 2% Ointment 1 INCH/1 GM Packet TOP SCH (02:00)
[2022-07-14] MEDS ORDERED: Enoxaparin Sodium 40 MG/0.4 ML SYRINGE SC SCH ×2 (02:00→21:00)
[2022-07-14] MEDS ORDERED: Lidocaine 2% Viscous Solution 20 ML, Aluminum & Magnesium Hydroxide 30 ML, Donnatal Eli... SSW SCH (02:15)
[2022-07-14 02:33] LABS: Troponin I 0.018 ng/mL (< 0.028)
[2022-07-14 06:13] LABS: #Lymphocytes 1.5 thou/uL (1.20-3.40); #Monocytes 0.3 thou/uL (0.11-0.59); #Neutrophils 2.1 thou/uL (1.40-6.50); %Basophils 0.2 % (0.0-1.0); %Eosinophils 0.8 % (0.0-10.0); %Lymphocytes 38.5 % (21.0-51.0); %Monocytes 8.2 % (0.0-10.0); %Neutrophils 52.3 % (42.0-75.0); Mean Corpuscular HGB CONC 34.1 g/dL (32.0-36.0); Mean Corpuscular Volume 87.9 fL (78.0-98.0); Mean Platelet Volume 7.5 fL (7.4-10.4); Platelet Count 191 thou/uL (130-400); RBC Distribution Width 11.3 % (11.5-14.5); Red Blood Cell (RBC) Count 3.69 mill/uL (4.20-5.40)
[2022-07-14 06:39] LABS: ALT (SGPT) Less than 7 U/L (8-55); AST (SGOT) 17 U/L (5-34); Albumin 3.2 g/dL (3.5-5.0); Alkaline Phosphatase 75 U/L (40-110); Anion Gap 10 mmol/L (10-20); BUN (Urea Nitrogen) 11 mg/dL (9.8-20.1); Bilirubin, Total 0.4 mg/dL (0.2-1.2); Calc. Creatinine Clearance 106 mL/min (70-130); Calcium 8.9 mg/dL (7.8-10.44); Carbon Dioxide 25 mmol/L (22-29); Cardiac Risk 3.3 (Less than 4.5); Chloride 108 mmol/L (98-107); Cholesterol 127 mg/dl (< 200 Desired); Estimated GFR 100; Globulin 3.7 g/dL (2.4-3.5); Glucose 93 mg/dL (70-105); HDL Cholesterol 38 mg/dL (>60 Neg Risk); LDL Cholesterol, Calculated 78 mg/dL; Magnesium 1.9 mg/dL (1.6-2.6); Potassium 3.3 mmol/L (3.5-5.1); Protein, Total 6.9 g/dL (6.0-8.3); Sodium 140 mmol/L (136-145); Triglycerides 55 mg/dL (Less than 150)
[2022-07-14 06:43] LABS: Troponin I 0.025 ng/mL (< 0.028)
[2022-07-14] MEDS ORDERED: Regadenoson 0.4 MG/5 ML SYRINGE ONE (09:01)
[2022-07-14] MEDS: Hydrochlorothiazide 25 MG TAB PO SCH (09:57)
[2022-07-14] MEDS: cloNIDine 0.1 MG TAB PO SCH (09:57)
[2022-07-14] MEDS: Amlodipine 10 MG TAB PO SCH (09:57)
[2022-07-14] MEDS: Metoprolol Tartrate 100 MG TAB PO SCH (09:58)
[2022-07-14] MEDS: Pantoprazole 40 MG VIAL IVP SCH (09:58)
[2022-07-14] MEDS: Atorvastatin Calcium 10 MG TAB PO SCH (09:58)
[2022-07-14] MEDS: Lisinopril 5 MG TAB PO SCH (09:58)
[2022-07-14] MEDS ORDERED: Spironolactone 25 MG TAB PO SCH (15:45)
[2022-07-15 05:59] LABS: Anion Gap 10 mmol/L (10-20); BUN (Urea Nitrogen) 15 mg/dL (9.8-20.1); Calc. Creatinine Clearance 94 mL/min (70-130); Calcium 8.9 mg/dL (7.8-10.44); Carbon Dioxide 27 mmol/L (22-29); Chloride 106 mmol/L (98-107); Estimated GFR 87; Glucose 94 mg/dL (70-105); Sodium 140 mmol/L (136-145)
[2022-07-15] MEDS: Lisinopril 5 MG TAB PO SCH (07:41)
[2022-07-15] MEDS: Amlodipine 10 MG TAB PO SCH (07:41)
[2022-07-15] MEDS: Pantoprazole 40 MG VIAL IVP SCH (07:41)
[2022-07-15] MEDS: Metoprolol Tartrate 100 MG TAB PO SCH (07:41)
[2022-07-15] MEDS: Atorvastatin Calcium 10 MG TAB PO SCH (07:42)
[2022-07-15] MEDS: cloNIDine 0.1 MG TAB PO SCH (07:42)
[2022-07-15] MEDS: Hydrochlorothiazide 25 MG TAB PO SCH (07:42)
[2022-07-15] MEDS ORDERED: Potassium Chloride 20 MEQ TAB PO SCH (08:00)
[2022-07-15] MEDS ORDERED: Spironolactone 25 MG TAB PO SCH (08:00)
[2022-07-15 12:25] VITALS: BP 138/80; TEMP 97.8
[2022-07-16] MEDS ORDERED: Lisinopril 20 MG TAB PO SCH (09:00)
== END 2022-07-15 14:46 | disposition home or self-care (01) ==
LOC: 2SW 07-14 01:11
PROVIDERS: ADMIT Internal Medicine; ATTEND Internal Medicine
DX: R07.9 Chest pain, unspecified (principal); I11.9 Hypertensive heart disease without heart failure; R06.09 Other forms of dyspnea; E78.5 Hyperlipidemia, unspecified; E87.6 Hypokalemia; K21.9 Gastro-esophageal reflux disease without esophagitis; R00.1 Bradycardia, unspecified; I44.0 Atrioventricular block, first degree; Z91.14 Patient's other noncompliance with medication regimen; Z79.899 Other long term (current) drug therapy; Z88.8 Allergy status to other drugs, medicaments and biological substances; Z20.822 Contact with and (suspected) exposure to COVID-19
CPT/HCPCS: 36415; 78452; 80048; 80053; 80061; 83735; 84443; 84484; 85025; 93005; 93010; 93017; 93306; 96372; 96374; 96376; A9500; C9113; G0378; J1650; J2785; U0003; U0005

== ENCOUNTER 2024-01-31 08:56 | Outpatient (CLI) | payer OTHER | END 2024-01-31 08:57 | disposition home or self-care (01) | LOC: BICMAMMO 08:56 | PROVIDERS: ATTEND Registered Nurse Hospice | DX: Z12.31 Encounter for screening mammogram for malignant neoplasm of breast (principal) | CPT/HCPCS: 77063; 77067 ==

== ENCOUNTER 2024-10-07 21:33 | Inpatient (IN) | payer OTHER ==
[2024-10-07 22:11] LABS: #Basophils Less than 0.03 10x3/uL (0.0-0.2); %Basophils 0.6 % (0.0-1.0); %Eosinophils 1.9 % (0.0-10.0); %Lymphocytes 38.3 % (21.0-51.0); %Monocytes 7.2 % (0.0-10.0); %Neutrophils 51.7 % (42.0-75.0); Hematocrit 34.4 % (36.0-47.0); Hemoglobin 11.8 g/dL (12.0-16.0); Mean Corpuscular HGB CONC 34.3 g/dL (32.0-36.0); Mean Corpuscular Hemoglobin 28.7 pg (27.0-31.0); Mean Corpuscular Volume 83.7 fL (78.0-98.0); Mean Platelet Volume 9.8 fL (7.4-10.4); Platelet Count 194 10x3/uL (130-400); RBC Distribution Width 12.5 % (11.5-14.5); Red Blood Cell (RBC) Count 4.11 mill/uL (4.20-5.40)
[2024-10-07 22:27] LABS: ALT (SGPT) 7 U/L (8-55); AST (SGOT) 17 U/L (5-34); Albumin 3.5 g/dL (3.5-5.0); Alkaline Phosphatase 93 U/L (40-110); Anion Gap 12 mmol/L (10-20); BUN (Urea Nitrogen) 9 mg/dL (9.8-20.1); Bilirubin, Total 0.3 mg/dL (0.2-1.2); Calc. Creatinine Clearance 0 mL/min (70-130); Calcium 8.9 mg/dL (7.8-10.44); Carbon Dioxide 24 mmol/L (22-29); Chloride 106 mmol/L (98-107); Estimated GFR 96; Globulin 4.5 g/dL (2.4-3.5); Glucose 95 mg/dL (70-105); Potassium 3.1 mmol/L (3.5-5.1); Sodium 139 mmol/L (136-145)
[2024-10-07 22:31] LABS: Troponin I 0.025 ng/mL (< 0.028)
[2024-10-07] MEDS ORDERED: hydrALAZINE 20 MG/ML VIAL ONE (22:31)
[2024-10-07] MEDS ORDERED: Acetaminophen 325 MG TAB PO PRN (22:43)
[2024-10-07] MEDS ORDERED: Ondansetron PF 4 MG/2 ML Vial IVP PRN (22:43)
[2024-10-07] MEDS ORDERED: Ondansetron ODT 4 MG TAB PO PRN (22:43)
[2024-10-07 23:03] LABS: Magnesium 2.1 mg/dL (1.6-2.6)
[2024-10-08] MEDS: Potassium Chloride 20 MEQ TAB PO SCH (00:39)
[2024-10-08 01:00] VITALS: BMI 27.0
[2024-10-08 02:15] LABS: #Basophils Less than 0.03 10x3/uL (0.0-0.2); %Basophils 0.6 % (0.0-1.0); %Eosinophils 1.8 % (0.0-10.0); %Lymphocytes 36.3 % (21.0-51.0); %Monocytes 8.1 % (0.0-10.0); %Neutrophils 52.9 % (42.0-75.0); Hematocrit 34.1 % (36.0-47.0); Hemoglobin 11.5 g/dL (12.0-16.0); Mean Corpuscular HGB CONC 33.7 g/dL (32.0-36.0); Mean Corpuscular Hemoglobin 28.7 pg (27.0-31.0); Mean Platelet Volume 9.7 fL (7.4-10.4); Platelet Count 181 10x3/uL (130-400); RBC Distribution Width 12.5 % (11.5-14.5); Red Blood Cell (RBC) Count 4.01 mill/uL (4.20-5.40)
[2024-10-08 02:38] LABS: Troponin I 0.018 ng/mL (< 0.028)
[2024-10-08] MEDS: traMADol HCl 50 MG TAB PO PRN (04:48)
[2024-10-08] MEDS: hydrALAZINE 20 MG/ML VIAL SLOW IVP PRN (04:48)
[2024-10-08 05:22] LABS: ALT (SGPT) 5 U/L (8-55); AST (SGOT) 16 U/L (5-34); Albumin 3.3 g/dL (3.5-5.0); Alkaline Phosphatase 89 U/L (40-110); Anion Gap 14 mmol/L (10-20); BUN (Urea Nitrogen) 8 mg/dL (9.8-20.1); Bilirubin, Total 0.3 mg/dL (0.2-1.2); Calc. Creatinine Clearance 89 mL/min (70-130); Calcium 9.1 mg/dL (7.8-10.44); Carbon Dioxide 20 mmol/L (22-29); Chloride 108 mmol/L (98-107); Estimated GFR 90; Globulin 4.3 g/dL (2.4-3.5); Glucose 125 mg/dL (70-105); Protein, Total 7.6 g/dL (6.0-8.3); Sodium 139 mmol/L (136-145)
[2024-10-08] MEDS: Famotidine 20 MG TAB PO SCH (08:12)
[2024-10-08] MEDS: NIFEdipine XL 60 MG ER.TAB PO SCH (08:12)
[2024-10-08] MEDS: Losartan 25 MG TAB PO SCH (08:12)
[2024-10-08] MEDS: Enoxaparin 40 MG (0.4 mL) SYRINGE SC SCH (08:12)
[2024-10-08] MEDS: Famotidine/PF 20 mg/2ml Vial SLOW IVP SCH (08:13)
[2024-10-08 12:47] VITALS: BMI 27.0
[2024-10-09 05:08] LABS: Magnesium 2.1 mg/dL (1.6-2.6); Potassium 3.6 mmol/L (3.5-5.1)
[2024-10-09] MEDS ORDERED: Regadenoson 0.4 MG/5 ML SYRINGE ONE (11:09)
[2024-10-09] MEDS: Atorvastatin Calcium 10 MG TAB PO SCH (12:46)
[2024-10-09] MEDS: Amlodipine 10 MG TAB PO SCH (12:46)
[2024-10-09] MEDS: Lisinopril 5 MG TAB PO SCH (12:46)
[2024-10-09] MEDS: Hydrochlorothiazide 25 MG TAB PO SCH (12:46)
[2024-10-10 04:44] LABS: Magnesium 2.2 mg/dL (1.6-2.6); Potassium 3.8 mmol/L (3.5-5.1)
[2024-10-10 07:29] VITALS: TEMP 98.2
[2024-10-10] MEDS: Lisinopril 20 MG TAB PO SCH (08:09)
[2024-10-10] MEDS: NIFEdipine XL 60 MG ER.TAB PO SCH (08:09)
[2024-10-10] MEDS ORDERED: Regadenoson 0.4 MG/5 ML SYRINGE ONE (11:52)
[2024-10-10 16:30] VITALS: BP 158/91
== END 2024-10-10 17:55 | disposition home or self-care (01) | DRG 313 ==
LOC: ERS 21:33 → OBS 22:43 → OBSVTOIN 10-08 16:00
PROVIDERS: ADMIT Internal Medicine; ATTEND Internal Medicine
DX: R07.9 Chest pain, unspecified (principal); I16.0 Hypertensive urgency; E87.6 Hypokalemia; E78.5 Hyperlipidemia, unspecified; I10 Essential (primary) hypertension; Z88.8 Allergy status to other drugs, medicaments and biological substances; Z91.141 Patient's other noncompliance with medication regimen due to financial hardship
CPT/HCPCS: 36415; 71045; 78452; 80053; 83735; 84132; 84484; 85025; 93005; 93017; 93306; 96372; 96374; 96376; A9500; G0378; J0360; J1650; J2785